=== PATIENT | male | born 1955 | race Caucasian/White ===

== ENCOUNTER 2018-06-14 05:01 | Emergency (ER) | payer BC ==
--- NOTE | 2018-06-14 17:48 | RAD ---
LEFT ELBOW FOUR VIEWS: HISTORY: Pain. Swinging a hammer and hit door frame with elbow. Occurrence two weeks ago. COMPARISON: None. FINDINGS: The joint space is preserved. No fracture. No cortical irregularity. No periosteal reaction. No j oint effusion or significant soft tissue swelling. Mild degenerative changes noted. IMPRESSION: No fracture. POS: [facility]
== END 2018-06-14 17:50 | disposition home or self-care (01) ==
LOC: NAV ERS 17:00
DX: M25.522 Pain in left elbow (principal); I25.10 Atherosclerotic heart disease of native coronary artery without angina pectoris; F41.9 Anxiety disorder, unspecified; F17.210 Nicotine dependence, cigarettes, uncomplicated; Z79.899 Other long term (current) drug therapy; Z79.82 Long term (current) use of aspirin